=== PATIENT | male | born 1970 | race Two or more races ===

== ENCOUNTER 2018-08-21 15:50 | Emergency (ER) | payer SELFPAY ==
[~2018-08-21] VITALS: Ht 167.6 cm; Wt 100.0 kg
[2018-08-21 15:52] VITALS: BP 159/109
[2018-08-21] MEDS ORDERED: METF-960 PO (16:02)
[2018-08-21] MEDS ORDERED: htn PO (16:02)
[2018-08-21] MEDS ORDERED: INSLAN SQ (16:02)
[2018-08-21 16:03] LABS: GLUCOSE,POINT OF CARE 267 MG/DL (70-110)
== END 2018-08-21 18:53 | disposition left against medical advice (07) ==
LOC: EMS 15:52
DX: E11.65 Type 2 diabetes mellitus with hyperglycemia (principal); R42 Dizziness and giddiness; I10 Essential (primary) hypertension; E78.00 Pure hypercholesterolemia, unspecified; Z79.4 Long term (current) use of insulin; Z88.8 Allergy status to other drugs, medicaments and biological substances